=== PATIENT | male | born 1970 | race Caucasian/White ===

== ENCOUNTER 2023-10-08 23:06 | Emergency (ER) | payer SELFPAY ==
[2023-10-08 23:09] VITALS: BP 169/111
[2023-10-08 23:44] LABS: % Basophils 0.6 % (0-2); % Eosinophils 1.9 % (0-6); % Immature Granulocytes 0.3 % (0-0.5); % Lymphocytes 32.6 % (20.5-51.1); % Monocytes 6.5 % (1.7-9.3); % Neutrophils 58.1 % (42.2-75.2); Absolute Eosinophils 0.1 10^3/uL (0-0.7); Absolute Lymphocytes 2.1 10^3/uL (1.2-3.4); Absolute Monocytes 0.4 10^3/uL (0.1-0.6); Absolute Neutrophils 3.7 10^3/uL (1.4-6.5); Hematocrit 35.2 % (39.0-52.0); Hemoglobin 13.2 g/dL (13.0-18.0); Mean Corp Hgb Conc. 37.5 g/dL (33.0-37.0); Mean Corpuscular Volume 85.2 fL (80.0-94.0); Mean Platelet Volume 9.4 fL (7.4-10.4); Nucleated Red Blood Cells % 0 % (-); Platelet Count 239 10^3/uL (130-400); Red Blood Cell Count 4.13 10^6/uL (4.70-6.10); Red Cell Dist. Width 12.5 % (11.5-14.5); White Blood Cell Count 6.4 10^3/uL (4.8-10.8)
--- NOTE | 2023-10-08 23:59 | ED.GENMED ---
History of Present Illness
General
Chief Complaint: Crisis Evaluation
Source: patient
Exam Limitations: none
Time Seen by Provider: 10/08/23 23:43
Travel History
Have you had any contact with someone who has COVID-19?: No
Do you have any symptoms of coronavirus? Fever > 100 degrees, chills, cough, shortness of breath, sore throat, loss of taste or smell, muscle aches, or headache?: No
History of Present Illness
History of Present Illness:
Patient took 12 Cymbalta tablets, 60 mg tablets, between 3 and 6 PM. No specific symptoms at this time. No other overdose. Admits to depression. No current suicidal plan. Patient presented himself for help
Past History
Past History
ED Past Medical History: HTN, Hypercholesterolemia and Psychiatric (anxiety/depression)
ED Past Surgical History: Orthopedic
Social History
Drug: None
Review of Systems
Review of Systems
All Other Systems: Not applicable
Respiratory: Reports no symptoms
Cardiac: Reports no symptoms
ABD/GI: Reports no symptoms
Phy Exam
Physical Exam
Physical Exam:
GENERAL: Alert and oriented in no apparent distress. Sitting up eating nontoxic
EYE: Orbits normal.
NECK: Supple, no significant adenopathy.
ENT: Pharynx without erythema
CARDIAC: Regular rate and rhythm without any obvious murmurs.
LUNGS: Clear breath sounds,normal
ABDOMEN: Soft, without focal tenderness or distention
NEUROLOGICAL: Alert and oriented , grossly non-focal
SKIN: Warm and dry, no rash or lesion, no discoloration, skin intact.
MUSCULOSKELETAL: No edema,no deformity.Good color
PSYCH: Flat affect. Cooperative
Course
Orders/Labs/Results
Orders:
Orders
10/08/23 23:14
1:1 Observation - Suicide/ Violent Behavior As Directed
10/08/23 23:34
Acetaminophen Urgent
Alcohol Urgent
Complete Blood Count/With Diff Urgent
Comprehensive Metabolic Panel Urgent
Fentanyl, Urine Urgent
Salicylate Urgent
Urine Drug Abuse Screen Urgent
Date Specimen was Collected: 10/08/23
Time Specimen was Collected: 23:32
10/09/23 00:00
Electrocardiogram (*1) Stat
Reason for Study: Other
Other Reason for Exam: overdose
10/09/23 00:22
EKG- Treatment ONCE
Abnormal Lab Results
10/08/23
23:34
RBC 4.13 L 10^6/uL
(4.70-6.10)
Hct 35.2 L %
(39.0-52.0)
MCH 32.0 H pg
(27.0-31.0)
MCHC 37.5 H g/dL
(33.0-37.0)
Glucose 120 H mg/dl
(70-99)
Salicylates < 1.0 L mg/dl
(2.0-20.0)
Acetaminophen < 10 L ug/ml
(10-30)
Ur Amphetamines Screen Positive H
(Negative)
U Marijuana (THC) Screen Positive H
(Negative)
10/08/23 23:34
10/08/23 23:34
Vital Signs
Initial and Last Documented VS:
Initial Vital Signs
Temp Pulse Resp BP Pulse Ox
98.0 F 96 20 169/111 99
10/08/23 23:09 10/08/23 23:09 10/08/23 23:09 10/08/23 23:09 10/08/23 23:09
Last Documented Vital Signs
Temp Pulse Resp BP Pulse Ox
98.0 F 96 20 160/100 99
10/08/23 23:09 10/08/23 23:09 10/08/23 23:09 10/09/23 01:06 10/08/23 23:09
*EKG
Interpreted by ED Provider?: Yes
Interpretation: abnormal
Comparison EKG: changes noted
Heart Rate: 92
Rate: normal
Rhythm: sinus
[place]: left axis deviation
Interval: normal interval
QRS Pattern: left vent hypertrophy
Ischemia: non-specific ST changes
*Critical Care Note
Total Time (30-74mins, 75-104mins- exclusive of procedures): Not Applicable
Update Note
Update Note:
This is been about 8 hours since ingestion. Medically stable. Feel he is medically cleared for further psychiatric care
ED Attending Note
-
Portions of this chart may have been created with voice recognition software.� Occasional wrong word or��sound alike� substitutions may have occurred due to the inherent limitations of voice recognition software.
Discharge Plan
Departure
Patient Disposition: [facility]
Date of Disposition: 10/09/23
Time of Disposition: 01:13
Discharge Problem:
Cymbalta overdose/depression
Prescriptions:
No Action
alprazolam 1 MG tablet
2 mg PO TID
Patient Comments:
06/16/2020: last filled 05/24/20, 180 tabs for 30 days from [facility]
olanzapine 10 MG tablet
5 mg PO HS
tramadol 50 MG tablet
50 mg PO QID
Patient Comments:
06/16/2020: last filled 05/30/20, 120 tabs for 30 days from [facility]
dextroamphetamine-amphetamine [Adderall] 30 MG tablet
30 mg PO QID
Patient Comments:
06/16/2020: last filled 05/30/20, 60 tabs for 30 days from [facility]. Filled twice once on insurance, 2nd private pay
gabapentin [Neurontin] 800 MG tablet
3,200 mg PO BID
trazodone 100 MG tablet
100 - 200 mg PO HS
duloxetine 60 MG capsule,delayed release(DR/EC)
60 mg PO DAILY
[id number] serr [Osteo Bi-Flex (5-Loxin)] 1 EACH tablet
2 ea PO DAILY
multivitamin with folic acid [Tab-A-Alfred] 1 TABLET tablet
1 tab PO DAILY
Creatine
4 tab PO DAILYPRN PRN (Reason: chest workout)
Referrals:
UNKNOWN - PT DOES,NOT KNOW [Family Provider] -
Interventions
Interventions:
*Risk Screen - Suicide Last Done: 10/08/23 23:09
*General Assessment Last Done: 10/08/23 23:09
*Neglect/Abuse Screening Last Done: 10/08/23 23:09
ED- Fall Risk Assessment Last Done: 10/08/23 23:40
*Nursing Disposition Last Done: 10/09/23 01:17
ED-Psychological Assessment Last Done: 10/08/23 23:40
Discharge Date and Time
Discharge Date/Time: 10/09/23 01:18
Print Language: ALBANIAN
[2023-10-09 00:02] LABS: ALT (SGPT) 31 U/L (0-50); AST (SGOT) 45 U/L (17-59); Acetaminophen < 10 ug/ml (10-30); Albumin 4.2 g/dl (3.5-5.0); Alkaline Phosphatase 74 U/L (38-126); Blood Urea Nitrogen 20 mg/dl (9-20); Calcium 9.3 mg/dl (8.4-10.2); Carbon Dioxide 26 mmol/L (22-30); Chloride 102 mmol/L (98-107); Glucose 120 mg/dl (70-99); Potassium 3.9 mmol/L (3.5-5.1); Salicylate < 1.0 mg/dl (2.0-20.0); Sodium 138 mmol/L (135-145); Total Protein 7.1 g/dl (6.3-8.2); eGFR > 60.00
[2023-10-09 00:03] LABS: Alcohol None Detected
[2023-10-09 00:08] LABS: Amphetamines Positive (Negative); Barbiturates Negative (Negative); Benzodiazepines Negative (Negative); Buprenorphine Negative (Negative); Cocaine Negative (Negative); Methadone Negative (Negative); Methamphetamines Negative (Negative); Opiates Negative (Negative)
[2023-10-09 00:09] LABS: Marijuana Positive (Negative); Phencyclidine Negative (Negative); Tricyclic Antidepressants Negative (Negative)
[2023-10-09 00:26] LABS: Fentanyl, Urine Negative (Negative)
[2023-10-09 01:06] VITALS: BP 160/100
== END 2023-10-09 01:18 ==
LOC: EMR 23:06
PROVIDERS: Emergency Medicine; EMERGENCY PHYSICIAN Emergency Medicine
DX: T43.211A Poisoning by selective serotonin and norepinephrine reuptake inhibitors, accidental (unintentional), initial encounter (principal); F32.A Depression, unspecified; Y92.9 Unspecified place or not applicable; E78.00 Pure hypercholesterolemia, unspecified; F41.9 Anxiety disorder, unspecified; I10 Essential (primary) hypertension
CPT/HCPCS: 99283; 80053; 80143; 80179; 80306; 80307; 82077; 85025; 93005

== ENCOUNTER 2023-10-28 12:17 | Emergency (ER) | payer SELFPAY ==
[2023-10-28 12:26] VITALS: BP 148/79
--- NOTE | 2023-10-28 13:51 | ED.GENMED ---
History of Present Illness
General
Chief Complaint: Dizziness
Source: patient
Exam Limitations: none
Time Seen by Provider: 10/28/23 13:19
Nursing documentation reviewed up to this point in time: agreed with
History of Present Illness
History of Present Illness:
Patient is a 53-year-old male past medical history of depression hypertension hypercholesteremia presents here to the ED.
Pt is awake alert rambling. He tells me he was walking in someone's yard and he was not supposed to be. Patient has no complaints, denies homicidal /suidical thoughts.
I spoke with his sister Maddison over the phone. who reports pt is homeless. HE was at [facility] transferred to [place] several weeks ago October 07 for overdose. Sister reports after [place] [facility] in [facility] for
him but he did not go to [place].
She does report he was using Adderal.
Past History
Past History
ED Past Medical History: HTN, Hypercholesterolemia and Psychiatric (anxiety/depression)
ED Past Surgical History: Orthopedic
Social History
Drug: None
Review of Systems
Review of Systems
Allergies reviewed?: Yes
All Other Systems: ROS reviewed and negative except as documented in HPI and ROS
Constitutional: Reports no symptoms; Denies fever, fatigue or chills
Cardiac: Reports no symptoms
ABD/GI: Reports no symptoms
: Reports no symptoms
Musculoskeletal: Reports no symptoms
Skin: Reports no symptoms
Neurological: Reports no symptoms
Psychiatric: Reports no symptoms
Phy Exam
General Physical Exam
General Presentation: no apparent distress
General age: appears stated age
General Skin: warm and dry
General Habitus: normal
General Mental: alert
General Hydration: appears well hydrated
Neurological Exam
Neurological Exam: alert and oriented x3
Musculoskeletal Exam
Musculoskeletal Exam: full ROM
Skin Exam
Skin Exam: normal color and warm/dry
Psychiatric Exam
Psychiatric Exam: normal mood/affect
Course
Orders/Labs/Results
Orders:
Orders
10/28/23 12:32
Electrocardiogram (*1) Urgent
Reason for Study: Vertigo / Dizzy
EKG- Treatment ONCE
10/28/23 14:32
Crisis Consult Urgent
Reason for Consult: psych eval
10/28/23 14:39
Acetaminophen Urgent
Alcohol Urgent
Complete Blood Count/With Diff Urgent
Comprehensive Metabolic Panel Urgent
Salicylate Urgent
10/28/23 15:42
0.9% Sodium Chloride 1000 ml [Nss] 1,000 ml IV BOLUS
10/28/23 17:24
Fentanyl, Urine Urgent
Urine Drug Abuse Screen Urgent
Date Specimen was Collected: 10/28/23
Time Specimen was Collected: 14:33
Abnormal Lab Results
10/28/23 10/28/23
14:39 17:24
RBC 4.32 L 10^6/uL
(4.70-6.10)
Hct 37.7 L %
(39.0-52.0)
MCH 31.5 H pg
(27.0-31.0)
Absolute Neuts (auto) 6.6 H 10^3/uL
(1.4-6.5)
Absolute Monos (auto) 0.7 H 10^3/uL
(0.1-0.6)
Lymphocytes % 19.0 L %
(20.5-51.1)
Carbon Dioxide 21 L mmol/L
(22-30)
BUN 28 H mg/dl
(9-20)
Total Bilirubin 1.9 H mg/dl
(0.2-1.3)
AST 80 H U/L
(17-59)
Salicylates < 1.0 L mg/dl
(2.0-20.0)
Acetaminophen < 10 L ug/ml
(10-30)
Ur Amphetamines Screen Positive H
(Negative)
U Marijuana (THC) Screen Positive H
(Negative)
10/28/23 14:39
10/28/23 14:39
Vital Signs
Initial and Last Documented VS:
Initial Vital Signs
Temp Pulse Resp BP Pulse Ox
97.7 F 85 17 148/79 100
10/28/23 12:26 10/28/23 12:26 10/28/23 12:26 10/28/23 12:26 10/28/23 12:26
Last Documented Vital Signs
Temp Pulse Resp BP Pulse Ox
97.7 F 88 18 122/84 98
10/28/23 12:26 10/28/23 15:19 10/28/23 15:19 10/28/23 15:19 10/28/23 15:19
MDM/Problems Addressed
MDM/Problems Addressed:
53 yr old male presented to the ED . Pt is homeless but awake alert.
He tells me he was in a person's yard and he was not supposed to be. He has no physical complaints. He denies any suicidal homicidal thoughts. He was previously as documented hospitalized at [facility] and then [facility] he was seen here October 07
for overdose of Cymbalta
He has no complaints of suicidal homicidal thoughts. He is awake alert cooperative. He is afebrile no acute distress no complaints of recent illness. He has a normal white count stable hemoglobin his BUN however is elevated at 28
And he was given fluids. He denies any drug use. He was eval by Crisis.
[place] after being discharged from [facility] recently however he did not want to stay in [place].
will transfer to Crisis. Urine Drug screen positive from amphetamines(patient is on Adderall) and marijuana
1744: Police presented to the ER with patient bag his cell phone and medications.
*Critical Care Note
Total Time (30-74mins, 75-104mins- exclusive of procedures): Not Applicable
ED Attending Note
-
Portions of this chart may have been created with voice recognition software.� Occasional wrong word or��sound alike� substitutions may have occurred due to the inherent limitations of voice recognition software.
Discharge Plan
Departure
Patient Disposition: [facility]
Date of Disposition: 10/28/23
Time of Disposition: 17:40
Patient with high blood pressure during this ER visit?: Yes
Condition: Fair
Covid-19: Not Applicable
Discharge Problem:
social evaluation
Prescriptions:
No Action
alprazolam 1 MG tablet
2 mg PO TID
Patient Comments:
06/16/2020: last filled 05/24/20, 180 tabs for 30 days from [facility]
olanzapine 10 MG tablet
5 mg PO HS
tramadol 50 MG tablet
50 mg PO QID
Patient Comments:
06/16/2020: last filled 05/30/20, 120 tabs for 30 days from [facility]
dextroamphetamine-amphetamine [Adderall] 30 MG tablet
30 mg PO QID
Patient Comments:
06/16/2020: last filled 05/30/20, 60 tabs for 30 days from [facility]. Filled twice once on insurance, 2nd private pay
gabapentin [Neurontin] 800 MG tablet
3,200 mg PO BID
trazodone 100 MG tablet
100 - 200 mg PO HS
duloxetine 60 MG capsule,delayed release(DR/EC)
60 mg PO DAILY
[id number]-Ymxhukzud serr [Osteo Bi-Flex (5-Loxin)] 1 EACH tablet
2 ea PO DAILY
multivitamin with folic acid [Tab-A-Alfred] 1 TABLET tablet
1 tab PO DAILY
Creatine
4 tab PO DAILYPRN PRN (Reason: chest workout)
Referrals:
Anitha Cox MD [Family Provider] -
Interventions
Interventions:
*Risk Screen - Suicide Last Done: 10/28/23 12:26
*General Assessment Last Done: 10/28/23 12:26
*Neglect/Abuse Screening Last Done: 10/28/23 12:26
ED- Fall Risk Assessment Last Done: 10/28/23 13:32
*ED COVID-19 Vaccine History Last Done: 10/28/23 13:32
ED- Neurological Assessment Last Done: 10/28/23 12:45
ED- Cardiac Assessment Last Done: 10/28/23 12:45
ED Swallowing Screen Last Done: 10/28/23 15:06
Discharge Date and Time
Print Language: CHADIAN
[2023-10-28 14:54] LABS: % Basophils 0.5 % (0-2); % Immature Granulocytes 0.2 % (0-0.5); % Monocytes 7.6 % (1.7-9.3); % Neutrophils 71.7 % (42.2-75.2); Absolute Basophils 0.1 10^3/uL (0-0.2); Absolute Eosinophils 0.1 10^3/uL (0-0.7); Absolute Lymphocytes 1.8 10^3/uL (1.2-3.4); Absolute Monocytes 0.7 10^3/uL (0.1-0.6); Absolute Neutrophils 6.6 10^3/uL (1.4-6.5); Hematocrit 37.7 % (39.0-52.0); Hemoglobin 13.6 g/dL (13.0-18.0); Mean Corp Hgb Conc. 36.1 g/dL (33.0-37.0); Mean Corpuscular Hgb 31.5 pg (27.0-31.0); Mean Corpuscular Volume 87.3 fL (80.0-94.0); Mean Platelet Volume 9.5 fL (7.4-10.4); Nucleated Red Blood Cells % 0 % (-); Platelet Count 215 10^3/uL (130-400); Red Blood Cell Count 4.32 10^6/uL (4.70-6.10); Red Cell Dist. Width 12.6 % (11.5-14.5); White Blood Cell Count 9.2 10^3/uL (4.8-10.8)
[2023-10-28 15:13] LABS: ALT (SGPT) 43 U/L (0-50); AST (SGOT) 80 U/L (17-59); Acetaminophen < 10 ug/ml (10-30); Albumin 4.6 g/dl (3.5-5.0); Alkaline Phosphatase 75 U/L (38-126); Blood Urea Nitrogen 28 mg/dl (9-20); Calcium 9.1 mg/dl (8.4-10.2); Carbon Dioxide 21 mmol/L (22-30); Chloride 106 mmol/L (98-107); Glucose 87 mg/dl (70-99); Potassium 4.3 mmol/L (3.5-5.1); Salicylate < 1.0 mg/dl (2.0-20.0); Sodium 138 mmol/L (135-145); Total Bilirubin 1.9 mg/dl (0.2-1.3); Total Protein 7.3 g/dl (6.3-8.2); eGFR > 60.00
[2023-10-28 15:18] LABS: Alcohol None Detected
[2023-10-28 15:19] VITALS: BP 122/84
[2023-10-28] MEDS: NSS 1000 IV (16:10)
[2023-10-28 16:11] VITALS: BMI 27.8
[2023-10-28 17:42] LABS: Amphetamines Positive (Negative); Barbiturates Negative (Negative); Benzodiazepines Negative (Negative); Buprenorphine Negative (Negative); Cocaine Negative (Negative); Marijuana Positive (Negative); Methadone Negative (Negative); Methamphetamines Negative (Negative); Opiates Negative (Negative); Phencyclidine Negative (Negative); Tricyclic Antidepressants Negative (Negative)
[2023-10-28 18:38] LABS: Fentanyl, Urine Negative (Negative)
== END 2023-10-28 19:05 ==
LOC: EMR 12:17
PROVIDERS: Nurse Practitioner; EMERGENCY PHYSICIAN Emergency Medicine; FAMILY PHYSICIAN Internal Medicine
DX: Z02.79 Encounter for issue of other medical certificate (principal); R51.9 Headache, unspecified; R42 Dizziness and giddiness; F32.A Depression, unspecified; E78.00 Pure hypercholesterolemia, unspecified; I10 Essential (primary) hypertension; F41.9 Anxiety disorder, unspecified; Z59.00 Homelessness unspecified
CPT/HCPCS: 99284; 96360; 80053; 80143; 80179; 80306; 80307; 82077; 85025; 93005